=== PATIENT | female | born 1930 | race Caucasian/White ===

== ENCOUNTER → 2016-11-09 | Outpatient (CLI) | payer MEDICARE ==
[~2016-11-09] MED LIST: ASP81CT PO; ASPI-84 PO; Azithromycin PO; BENA1TAB12 PO; BENAZEPRIL/HCTZ PO; BNZ20T PO; CALC-250 PO; CALC-722 PO; CALC1TAB29 PO; CEFD300C PO; CEFD300C3 PO; CYAN10007 PO; D50KC PO; DABI150C PO; DABI150C2 PO; DABI150C5 PO; DABI75CA3 PO; DIGO125T PO; DIGO250T15 PO; DILT240C PO; DONE10TA12 PO; DONE5TAB PO; ESCI10TA48 PO; EXELON PATCH TD; FLC1T PO; FRSM20T PO; FURO-124 PO; FURO-125 PO; FURO20TA4 PO; FURO40TA4 PO; HYDR473S50 PO; LEVO100T PO; LEVO75TA6 PO; LORA10TA76 PO; MEMA10TA PO; MEMA28CA PO; MTX2.5T PO; MULT-608 PO; NTR.4SL SL; OMEG1CAP74 PO; POTA10CA43 PO; POTA10TA6 PO; SIMV10TA3 PO; SIMV20TA3 PO; TRAM-42 PO; TRM50T PO
== END ==
LOC: CARD 09:40
PROVIDERS: ATTEND Nurse Practitioner Family
DX: I48.0 Paroxysmal atrial fibrillation (principal); I65.23 Occlusion and stenosis of bilateral carotid arteries; I10 Essential (primary) hypertension; I34.0 Nonrheumatic mitral (valve) insufficiency
CPT/HCPCS: 93306

== ENCOUNTER → 2017-01-03 | Outpatient (CLI) | payer MEDICARE ==
--- NOTE | 2017-01-03 12:02 | Diagnostic Imaging Report ---
INDICATION: Cough and dyspnea. PA and lateral views of the chest are obtained. Comparison is made to study 05/02/2015. Overall heart size and pulmonary vascularity are within normal limits. There is air trapping, bilaterally. Prominent interstitial markings are seen throughout the lungs. There is no consolidation or significant pleural effusion. There is extensive thoracic spondylosis with moderate to severe compression deformity of a lower thoracic vertebral body. IMPRESSION: Probable chronic findings in the lungs. No definite acute infiltrate or other acute abnormalities identified. There is moderately severe compression fracture deformity in the lower thoracic spine and clinical correlation is recommended. Dictated by: Dictated on workstation # [id number]
== END ==
LOC: RAD 11:38
PROVIDERS: ATTEND Nurse Practitioner Family
DX: R91.8 Other nonspecific abnormal finding of lung field (principal); R06.02 Shortness of breath
CPT/HCPCS: 71020

== ENCOUNTER → 2017-10-21 | Outpatient (CLI) | payer MEDICARE ==
[2017-10-21 16:33] LABS: BASOPHILS % (AUTO) 0 % (0-10); EOSINOPHILS # (AUTO) 0.2 10^3/uL (0.0-0.3); EOSINOPHILS % (AUTO) 2 % (0-10); HEMATOCRIT 42 % (35-52); HEMOGLOBIN 14.2 G/DL (11.5-16.0); LYMPHOCYTES # (AUTO) 1.6 X 10^3 (1.0-4.0); LYMPHOCYTES % (AUTO) 17 % (12-44); MEAN CORPUSCULAR HEMOGLOBIN 32 PG (25-34); MEAN CORPUSCULAR HGB CONC 34 G/DL (32-36); MEAN CORPUSCULAR VOLUME 95 FL (80-99); MONOCYTES # (AUTO) 1.3 X 10^3 (0.0-1.0); MONOCYTES % (AUTO) 14 % (0-12); NEUTROPHILS # (AUTO) 6.3 X 10^3 (1.8-7.8); NEUTROPHILS % (AUTO) 67 % (42-75); PLATELET COUNT 188 10^3/uL (130-400); RED BLOOD COUNT 4.42 10^6/uL (4.35-5.85); WHITE BLOOD COUNT 9.4 10^3/uL (4.3-11.0)
[2017-10-21 17:05] LABS: ALANINE AMINOTRANSFERASE 9 U/L (0-55); ALBUMIN 3.8 GM/DL (3.2-4.5); ALKALINE PHOSPHATASE 67 U/L (40-136); BILIRUBIN,TOTAL 0.4 MG/DL (0.1-1.0); BUN/CREATININE RATIO 15; CALCIUM 8.7 MG/DL (8.5-10.1); CARBON DIOXIDE 28 MMOL/L (21-32); CHLORIDE 104 MMOL/L (98-107); CREATININE SERUM 0.84 MG/DL (0.60-1.30); GFR ESTIMATED > 60; GLUCOSE 99 MG/DL (70-105); POTASSIUM 3.6 MMOL/L (3.6-5.0); SODIUM 140 MMOL/L (135-145); TOTAL PROTEIN 5.8 GM/DL (6.4-8.2)
== END ==
LOC: CVS 16:26
PROVIDERS: ATTEND Family Medicine
DX: R53.1 Weakness (principal)
CPT/HCPCS: 80053; 85025

== ENCOUNTER → 2018-05-01 | Outpatient (CLI) | payer MEDICARE ==
--- NOTE | 2018-05-01 17:34 | Diagnostic Imaging Report ---
CLINICAL INDICATION: Patient's daughter states doctor heard rattling on left side. Patient has cough and concern for pneumonia. Exam: Chest x-ray PA and lateral views. Comparisons: Chest x-ray dated 01/03/2017. Findings: Lungs/pleura: There is no interval lung infiltrate. Stable chronic lung changes with increased lung markings and reticulonodular changes throughout both lungs, likely representing scarring. There is no pneumothorax. There is no pleural effusion. Mediastinum: Unremarkable. Pulmonary vasculature: Unremarkable. Heart: Unremarkable. Bones/extrathoracic soft tissue: Stable chronic anterior wedge compression deformities of the lower thoracic spine. There are hypertrophic spurs throughout the thoracic spine. Again seen surgical sutures overlying the anterior abdominal region. Impression: 1: Stable chest x-ray exam with no interval radiographic evidence of acute cardiopulmonary process. 2: Stable chronic lung changes with scarring seen bilaterally. Dictated by: Dictated on workstation # [id number]
== END ==
LOC: RAD 15:49
PROVIDERS: ATTEND Nurse Practitioner Family
DX: J98.4 Other disorders of lung (principal); R05 Cough
CPT/HCPCS: 71046

== ENCOUNTER 2018-05-04 12:43 | Outpatient (CLI) | payer MEDICARE ==
[~2018-05-04] VITALS: Ht 160 cm; Wt 69.4 kg
[2018-05-04 12:53] VITALS: BP 128/71
[2018-05-04] MEDS ORDERED: cefTRIAXone 1 GM/NS 50 ML IVPB IV ONE ×2 (13:15)
[2018-05-04] MEDS ORDERED: NS IV 1000 ML 1,000 ML IV ONE (13:15)
[2018-05-04] MEDS ORDERED: AZITHROMYCIN 500 MG/NS 250 ML IVPB IV ONE ×2 (13:15)
[2018-05-04 13:27] LABS: HEMOGLOBIN 14.4 G/DL (11.5-16.0); RED BLOOD COUNT 4.58 10^6/uL (4.35-5.85); RED CELL DISTRIBUTION WIDTH 14.8 % (10.0-14.5); WHITE BLOOD COUNT 16.6 10^3/uL (4.3-11.0)
[2018-05-04 14:22] LABS: ALANINE AMINOTRANSFERASE < 6 U/L (0-55); ALBUMIN 3.6 GM/DL (3.2-4.5); ALKALINE PHOSPHATASE 66 U/L (40-136); BILIRUBIN,TOTAL 0.8 MG/DL (0.1-1.0); BUN/CREATININE RATIO 9; CALCIUM 8.6 MG/DL (8.5-10.1); CARBON DIOXIDE 26 MMOL/L (21-32); CHLORIDE 101 MMOL/L (98-107); CREATININE SERUM 0.97 MG/DL (0.60-1.30); GFR ESTIMATED 54; GLUCOSE 104 MG/DL (70-105); POTASSIUM 3.7 MMOL/L (3.6-5.0); SODIUM 136 MMOL/L (135-145); TOTAL PROTEIN 6.2 GM/DL (6.4-8.2)
[2018-05-04 16:45] VITALS: BP 127/66
== END 2018-05-04 16:45 | disposition home or self-care (01) ==
LOC: SDC 12:43
PROVIDERS: ATTEND Nurse Practitioner Family
DX: J18.9 Pneumonia, unspecified organism (principal)
CPT/HCPCS: 36415; 80053; 85027; 87804